=== PATIENT | female | born 1950 | race Hispanic/Latino ===

== ENCOUNTER 2018-11-27 13:22 | Emergency (ER) | payer OTHER ==
[2018-11-27 13:25] VITALS: BMI 32.5
[2018-11-27 14:40] LABS: BASO # 0.01 K/mm3 (0.0-2.0); BASO % 0.2 % (0.0-3.0); EOS % 0.5 % (1.5-5.0); GRAN # 3.12 (1.4-6.5); GRAN % 73.6 % (50.0-68.0); LYMPH # 0.6 (1.2-3.4); LYMPH % 14.6 % (22.0-35.0); MEAN CELL VOLUME 87.9 fl (80.0-105.0); MEAN CORPUSCULAR HEMOGLOBIN 29.2 pg (25.0-35.0); MEAN CORPUSCULAR HGB CONC 33.2 g/dl (31.0-37.0); MEAN PLATELET VOLUME 9.2 fl (7.0-11.0); MONO # 0.5 (0.1-0.6); MONO % 11.1 % (1.0-6.0); RBC 4.45 10^6/uL (3.5-6.1); RED CELL DISTRIBUTION WIDTH 13.7 % (11.5-14.5); WHITE BLOOD COUNT 4.2 10^3/uL (4.5-11.0)
[2018-11-27 14:47] LABS: ALB/GLOB RATIO 1.3 (1.1-1.8); ALBUMIN 4.5 g/dL (3.0-4.8); ALT/SGPT 46 U/L (7-56); AST/SGOT 60 U/L (14-36); BLOOD UREA NITROGEN 16 mg/dL (7-21); CALCIUM 9.3 mg/dL (8.4-10.5); GFR NON-AFRICAN AMERICAN > 60
[2018-11-27 14:59] LABS: B-TYPE NATRIURETIC PEPTIDE 1620 pg/mL (0-450); TROPONIN I < 0.01 ng/mL
[2018-11-27] MEDS ORDERED: Sodium Chloride 0.9% 500 ML IV STA (15:02)
[2018-11-27] MEDS ORDERED: Promethazine DM 6.25 mg-15 mg/5 ml Syrup PO STA (15:02)
[2018-11-27 15:03] LABS: CK-MB 1.3 ng/mL (0.0-3.6)
--- NOTE | 2018-11-27 15:06 | RAD ---
Date of service: 11/27/2018 HISTORY: cough/CP COMPARISON: No prior. FINDINGS: LUNGS: No active pulmonary disease. PLEURA: No significant pleural effusion identified, no pneumothorax apparent. CARDIOVASCULAR: Prominent cardiac silhouette may be on the basis of technical magnification. No pulmonary vascular congestion appreciable. OSSEOUS STRUCTURES: No significant abnormalities. VISUALIZED UPPER ABDOMEN: Normal. OTHER FINDINGS: None. IMPRESSION: No acute infiltrate or pulmonary vascular congestion appreciated. Prominent cardiac silhouette may be on the basis of frontal technique versus intrinsic enlargement. Clinically correlate further.
--- NOTE | 2018-11-27 15:39 | ED PDOC ---
Arrival/HPI - General Chief Complaint: Cough, Cold, Congestion Time Seen by Provider: 11/27/18 13:26 Historian: Patient - History of Present Illness Narrative History of Present Illness (Text): 11/27/18 15:34 68yo female with pmhx of Afib(on Xarelto) who present with complaint of cough, chest pain and malaise x 2days. States she have history of chronic cough, but it became worse the last 2days. States she [place] unknown [place] from [place] and stopped because she had diarrhea with the antibiotics. Reports subjective fever. Notes chronic right LE edema, currently on antidiuretics. She denies diaphoresis, orthopnea, MOON, back pain, nausea, vomiting, abdominal pain, sick contact, travel, any other complaint. Past Medical History - Provider Review Nursing Documentation Reviewed: Yes - Cardiac Hx Cardiac Disorders: Yes Hx Atrial Fibrillation: Yes - Pulmonary Hx Respiratory Disorders: No - Neurological Hx Neurological Disorder: No - HEENT Hx HEENT Disorder: No - Renal Hx Renal Disorder: No - Endocrine/Metabolic Hx Endocrine Disorders: Yes Hx Hypothyroidism: Yes - Hematological/Oncological Hx Blood Disorders: No - Integumentary Hx Dermatological Disorder: No - Musculoskeletal/Rheumatological Hx Musculoskeletal Disorders: No - Genitourinary/Gynecological Hx Genitourinary Disorders: No - Psychiatric Hx Psychophysiologic Disorder: No Hx Substance Use: No - Anesthesia Hx Anesthesia: Yes Hx Anesthesia Reactions: No Hx Malignant Hyperthermia: No - Suicidal Assessment Feels Threatened In Home Enviroment: No Family/Social History - Physician Review Nursing Documentation Reviewed: Yes Family/Social History: Unknown Family HX Smoking Status: Never Smoked Hx Alcohol Use: No Hx Substance Use: No Allergies/Home Meds Allergies/Adverse Reactions: Allergies loratadine [From Claritin] Allergy (Severe, Verified 11/07/16 10:30) ANAPHYLAXIS Home Medications: Home Meds Medication Instructions Recorded Confirmed Methimazole [Tapazole] 5 mg PO QAM 11/07/16 11/07/16 Metoprolol Tartrate [Lopressor] 25 mg PO BID 11/07/16 11/07/16 Warfarin [Coumadin] 10 mg PO QPM 11/07/16 11/07/16 Review of Systems - Physician Review All systems were reviewed & negative as marked: Yes - Review of Systems Constitutional: Fatigue Eyes: Normal ENT: Normal Respiratory: Cough Cardiovascular: Chest Pain, Edema Gastrointestinal: Normal Genitourinary Female: Normal Musculoskeletal: Normal Skin: Normal Neurological: Normal Endocrine: Normal Hemo/Lymphatic: Normal Psychiatric: Normal Physical Exam Vital Signs Reviewed: Yes Vital Signs Temp Pulse Resp BP Pulse Ox 11/27/18 15:26 98.2 F 110 H 18 98/65 L 100 11/27/18 13:37 98.2 F 108 H 18 136/69 95 11/27/18 13:22 98.2 F 106 H 20 136/69 95 Temperature: Afebrile Blood Pressure: Normal Pulse: Tachycardic Respiratory Rate: Normal Appearance: Positive for: Well-Appearing, Non-Toxic, Comfortable Pain Distress: None Mental Status: Positive for: Alert and Oriented X 3 - Systems Exam Head: Present: Atraumatic, Normocephalic Pupils: Present: PERRL Extroacular Muscles: Present: EOMI Conjunctiva: Present: Normal Mouth: Present: Moist Mucous Membranes Neck: Present: Normal Range of Motion Respiratory/Chest: Present: Clear to Auscultation, Good Air Exchange. No: Respiratory Distress, Accessory Muscle Use, Wheezes, Decreased Breath Sounds, Rales, Retracting, Rhonchi Cardiovascular: Present: Regular Rate and Rhythm, Normal S1, S2. No: Murmurs Abdomen: No: Tenderness, Distention, Peritoneal Signs Back: Present: Normal Inspection Upper Extremity: Present: Normal Inspection. No: Cyanosis, Edema Lower Extremity: Present: Normal Inspection, Edema (2+ pitting to right LE). No: CALF TENDERNESS Neurological: Present: GCS=15, CN II-XII Intact, Speech Normal Skin: Present: Warm, Dry, Normal Color. No: Rashes Psychiatric: Present: Alert, Oriented x 3, Normal Insight, Normal Concentration Medical Decision Making ED Course and Treatment: 11/27/18 17:05 68yo female present with complaint of cough, chest pain, malaise x 2days. Labs chest xray Rapid flu EKG Heart Monitor Reassess EKG Afib with RVR @ 102bpm. N-stemi 11/27/18 17:07 Labs reviewed - hypokalemia noted and was repleted. Elevated BNP noted and Lasix was ordered. First CE was normal. Leukopenic secondary to the flu. Rapid Flu Positive chest xray IMPRESSION: No acute infiltrate or pulmonary vascular congestion appreciated. Prominent cardiac silhouette may be on the basis of frontal technique versus intrinsic enlargement. Clinically correlate further. Tamiflu Zithromax Mild hypotension was noted likely secondary to the Flu and it improved in ED after hydration. Plan was to admit pt for further cardiac evaluation and treatment Result and plan was DW the pt and she declined admission. States she have a dog at home and can't leave it by itself. She verbalized understading of possible cardiac event, chronic disability or that could occur. she understands all these risk and still insisted on signing out AMA. She is AAO x3 in ED and capable of making this decision. she was DC home with Tamiflu, promethazine and Zpack. she understands that she can return to ED at anytime she changes her mind. - Lab Interpretations Lab Results: Troponin I < 0.01 ng/mL 11/27/18 14:30 NT-Pro-B Natriuret Pep 1620 pg/mL (0-450) H 11/27/18 14:30 Total Bilirubin 0.4 mg/dL (0.2-1.3) 11/27/18 14:30 AST 60 U/L (14-36) H 11/27/18 14:30 ALT 46 U/L (7-56) 11/27/18 14:30 Alkaline Phosphatase 71 U/L (38-126) 11/27/18 14:30 Total Protein 8.0 g/dL (5.8-8.3) 11/27/18 14:30 Albumin 4.5 g/dL (3.0-4.8) 11/27/18 14:30 Globulin 3.5 gm/dL 11/27/18 14:30 Albumin/Globulin Ratio 1.3 (1.1-1.8) 11/27/18 14:30 - RAD Interpretation Radiology Orders: 11/27/18 13:45 CHEST PORTABLE [RAD] Stat - Medication Orders Current Medication Orders: Discontinued Medications Sodium Chloride (Sodium Chloride 0.9%) 500 mls @ 999 mls/hr IV .Q31M STA Stop: 11/27/18 15:32 Last Admin: 11/27/18 15:29 Dose: 999 mls/hr eMAR Start Stop Document 11/27/18 15:29 OCS (Rec: 11/27/18 15:29 OCS [id number]) Intravenous Solution Start Date 11/27/18 Start Time 15:29 End Date 11/27/18 End time 15:59 Total Infusion Time 30 Oseltamivir Phosphate (Tamiflu Cap) 75 mg PO ONCE STA; Protocol Stop: 11/27/18 14:56 Last Admin: 11/27/18 15:29 Dose: 75 mg Promethazine HCl/Dextromethorphan (Phenergan Dm Syrup) 5 ml PO Q6H STA Stop: 11/27/18 15:03 Disposition/Present on Arrival - Present on Arrival Any Indicators Present on Arrival: No History of DVT/PE: No History of Uncontrolled Diabetes: No Urinary Catheter: No History of Decub. Ulcer: No History Surgical Site Infection Following: None - Disposition Have Diagnosis and Disposition been Completed?: Yes Diagnosis: Influenza, Cough, CHF (congestive heart failure), Chest pain Disposition: AGAINST MEDICAL ADVICE Disposition Time: 16:55 Patient Plan: Discharge Patient Problems: Current Active Problems Problem Status Onset CHF (congestive heart failure) Acute Cough Acute Influenza Acute Condition: GUARDED Discharge Instructions (ExitCare): Heart Failure (ED), Chest Pain (ED) Prescriptions: Azithromycin [Zithromax] 250 mg PO DAILY #4 tab Oseltamivir Phosphate [Tamiflu] 75 mg PO BID #10 capsule Promethazine [Phenergan Syrup] 6.25 mg PO Q6 #100 ml Referrals: Roselyn Hughes MD [Medical Doctor] - Follow up with primary Forms: [employer] (Kiswahili)
[2018-11-27] MEDS ORDERED: Potassium Chloride 20 mEq ER Tab PO STA (15:41)
[2018-11-27 16:24] LABS: INR 1.1; PARTIAL THROMBOPLASTIN TIME 30.1 Seconds (25.1-36.5); PROTHROMBIN TIME 12.6 SECONDS (9.4-12.5)
[2018-11-27 17:19] VITALS: RESP 20
[2018-11-27 17:54] VITALS: BP 109/71; PULSE 85; TEMP 98.9; O2SAT 97
--- NOTE | 2018-11-27 20:22 | CARD ---
APPROVED REPORT Date of service: 11/27/2018 EKG Measurement Heart [id number] <Conclusion> Atrial fibrillation with rapid ventricular response with premature ventricular or aberrantly conducted complexes ST & T wave abnormality, consider inferior ischemia or digitalis effect ST & T wave abnormality, consider anterolateral ischemia or digitalis effect Abnormal ECG
== END 2018-11-27 17:54 | disposition left against medical advice (07) ==
LOC: ED 13:22
DX: R05 Cough (principal); J11.1 Influenza due to unidentified influenza virus with other respiratory manifestations; I50.9 Heart failure, unspecified; R07.9 Chest pain, unspecified; I48.91 Unspecified atrial fibrillation; E03.9 Hypothyroidism, unspecified
CPT/HCPCS: 71045; 80053; 82550; 82553; 83615; 83735; 83880; 84484; 85025; 85610; 85730; 87804; 93005; 96374; 99285; J1940; J7040

== ENCOUNTER 2018-12-12 12:08 | Emergency (ER) | payer OTHER ==
[2018-12-12 12:15] VITALS: BMI 32.9
[2018-12-12 12:18] VITALS: RESP 18; TEMP 97.6
[2018-12-12] MEDS ORDERED: Oxycodone/Acetaminophen 5/325 mg Tab PO STA (12:33)
--- NOTE | 2018-12-12 12:35 | ED PDOC ---
Arrival/HPI - General Chief Complaint: Lower Extremity Problem/Injury Time Seen by Provider: 12/12/18 12:09 Historian: Patient, Family - History of Present Illness Narrative History of Present Illness (Text): 12/12/18 12:34 A 68 year old female, whose past medical history includes Afib -on Xarelto, presents to the emergency department accompanied by familly complaining of right knee pain for the past few days. Patient's friend translating at patient's request reports patient almost fell walking her dogs and went to the ER for her knee pain however pain persisted after visit. Patient notes xrays were taken of her knee twice that showed no trauma or fracture. Patient notes she has taken Tylenol and Aleve for pain to some relief. Has ortho follow up in 6 weeks. Patient denies any fever, chills, shortness of breath, or any other complaints. PMD: Dr. Cuenca Time/Duration: > week (6 weeks) Symptom Onset: Gradual Symptom Course: Unchanged Activities at Onset: Light Context: Home Past Medical History - Provider Review Nursing Documentation Reviewed: Yes - Infectious Disease Hx of Infectious Diseases: None - Reproductive Menopause: No - Cardiac Hx Cardiac Disorders: Yes Hx Atrial Fibrillation: Yes - Pulmonary Hx Respiratory Disorders: No - Neurological Hx Neurological Disorder: No - HEENT Hx HEENT Disorder: No - Renal Hx Renal Disorder: No - Endocrine/Metabolic Hx Endocrine Disorders: Yes Hx Hypothyroidism: Yes - Hematological/Oncological Hx Blood Disorders: No - Integumentary Hx Dermatological Disorder: No - Musculoskeletal/Rheumatological Hx Musculoskeletal Disorders: No - Genitourinary/Gynecological Hx Genitourinary Disorders: No - Psychiatric Hx Psychophysiologic Disorder: No Hx Substance Use: No - Anesthesia Hx Anesthesia: Yes Hx Anesthesia Reactions: No Hx Malignant Hyperthermia: No - Suicidal Assessment Feels Threatened In Home Enviroment: No Family/Social History - Physician Review Nursing Documentation Reviewed: Yes Family/Social History: No Known Family HX Smoking Status: Never Smoked Hx Alcohol Use: No Hx Substance Use: No Allergies/Home Meds Allergies/Adverse Reactions: Allergies loratadine [From Claritin] Allergy (Severe, Verified 11/07/16 10:30) ANAPHYLAXIS Home Medications: Home Meds Medication Instructions Recorded Confirmed Rivaroxaban [Xarelto] 5 mg PO DAILY 12/12/18 12/12/18 Review of Systems - Physician Review All systems were reviewed & negative as marked: Yes - Review of Systems Constitutional: absent: Fevers Respiratory: absent: SOB Physical Exam - Physical Exam Narrative Physical Exam (Text): Constitutional: No acute distress. Head: Normocephalic. Atraumatic. Eyes: PERRL. ENT: Moist mucous membranes. Neck: Supple. Cardiovascular: Regular rate. Chest: No tenderness. Respiratory: Clear to auscultation bilaterally. GI: Soft. Nontender. Nondistended. Back: No CVA tenderness. Musculoskeletal: Pin point medial tenderness to right knee. Negative anterior and posterior drawer test. Full ROM. Skin: No rash. Neurologic: Alert, no focal deficit. Vital Signs Reviewed: Yes Vital Signs Temp Pulse Resp BP Pulse Ox 12/12/18 12:15 97.6 F 81 18 117/71 97 Temperature: Afebrile Blood Pressure: Normal Pulse: Regular Respiratory Rate: Normal Appearance: Positive for: Well-Appearing, Non-Toxic Pain Distress: Moderate Medical Decision Making ED Course and Treatment: 12/12/18 12:37 Impression: 68 year old female presents to the emergency department accompanied by family complaining of right knee pain. Plan: -- Percocet -- Reassess and disposition Prior Visits: Notes and results from previous visits were reviewed. Progress Notes: 12/12/18 12:43 INFECTION PREVENTION SPECIALIST registry checked, patient has no previous prescriptions within the last year. Advised or risks. Keep appointment with Ortho for likely MRI, return to ED for worsening pain, fever, inability to range, or any other problem. - Scribe Statement The provider has reviewed the documentation as recorded by the Víctor Badillo All medical record entries made by the Víctor were at my direction and personally dictated by me. I have reviewed the chart and agree that the record accurately reflects my personal performance of the history, physical exam, medical decision making, and the department course for this patient. I have also personally directed, reviewed, and agree with the discharge instructions and disposition. Disposition/Present on Arrival - Present on Arrival Any Indicators Present on Arrival: No History of DVT/PE: No History of Uncontrolled Diabetes: No Urinary Catheter: No History of Decub. Ulcer: No History Surgical Site Infection Following: None - Disposition Have Diagnosis and Disposition been Completed?: Yes Diagnosis: Knee pain Disposition: HOME/ ROUTINE Disposition Time: 13:19 Patient Plan: Discharge Condition: STABLE Discharge Instructions (ExitCare): Knee Pain Prescriptions: oxyCODONE/Acetaminophen [Percocet 5/325 mg Tab] 1 tab PO Q4H #18 tab Referrals: Basil Bo III, MD [Medical Doctor] - Follow up with primary Forms: [employer] (Nigerien)
[2018-12-12 13:19] VITALS: BP 109/56; PULSE 73; O2SAT 98
== END 2018-12-12 13:24 | disposition home or self-care (01) ==
LOC: ED 12:08
DX: M25.561 Pain in right knee (principal); I48.91 Unspecified atrial fibrillation; E03.9 Hypothyroidism, unspecified